=== PATIENT | female | born 1940 | race Caucasian/White ===

== ENCOUNTER 2024-01-04 09:55 | Outpatient (RCR) | payer MEDICARE, BC, SELFPAY ==
--- NOTE | 2024-01-04 10:50 | PT.OPEX ---
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 Victoria Subjective Subjective Patient is a 83 year old female who presents to physical therapy for her pre- op appointment prior to left JONATHON on 02/01/24. She is residing at the rehab center in [place] and will be having her post-op PT there as well. Significant past medical history includes metal implants in right wrist since September, arthritis, and osteoporosis. Pain Comments Today: 4/10 on a 0-10 pain scale with 10 = extreme pain At its worst: 8/10 At its best: 4/10 Current Work Status Retired Precautions Weight Bearing Status Full Weight Bearing Objective Other/Pertinent Objective Arrives in wheelchair KNEE ROM Grossly tested WNL B HIP ROM Seated exam in the wheelchair Grossly tested WNL, pain noted with IR and abduction LLE MMT: Hip flexion: R 4-/5 L 3+/5 Knee flexion: R 4-/5 L 3+/5 Knee extension: R 4-/5 L 3+/5 Reviewed/demonstrated on frequency to perform HEP post operatively including: long sitting quad set ankle pumps supine glute sets supine hamstring sets supine heel slide standing hip abd with UE support Extensive discussion and education on what to expect post operatively. Time was spent discussing home modifications, Assistive devices, pain control, fall prevention, hospital stay time line, and assist needed for activities post surgically. Pt questions were answered and demonstrated understanding. Assessment Assessment/Impression Pt is a 83 year old female who presents to PT prior to left JONATHON surgery on 02/01/24. Patient also has notable objective findings including limited ROM, tenderness to palpation, and decreased strength which are also likely contributing to the problem. Patient is a good candidate for skilled therapy to target deficits described above. Skilled PT intervention is necessary for use of therapeutic exercise manual therapy, neuromuscular re- education, gait training, and therapeutic activity. Functional impairments include difficulty with: standing, walking, exercising and ADLS. See appropriate sections of PT eval for complete list of goals and POC. D/C plan and criteria is for pt to achieve the goals as listed below or until max rehab potential is met. Pt was agreeable with plan of care and goals established. Primary Functional Limitations standing walking exercising ADLs Plan of Care Rehabilitation Potential Good Physical Therapy Goals JONATHON GOALS Within 10-12 weeks: 1) Pt will ambulate at least 20 minutes with asistive device, minimal antalgic gait for improved community mobility 2) Pt will be indep with HEP for halfway management of pain/symptoms 3) Pt will improve hip AROM at least 0-90* for improved sit to stand transfers 4) Patient will ascend/descend at least 10 steps using single rail and reciprocal pattern to improve ease of mobility at home/community 5)Pt will ambulate at least 20 minutes without assistive device, minimal antalgic gait for improved community mobility Coordination/Communication With Referral Source Treatment Plan/Direct Interventions Gait Training,Manual Therapy, Neuromuscular Re-ed, Therapeutic Activities, Therapeutic Exercises Patient Will Be Discharged From Therapy Independently Progressing Evaluation Billing Untimed Code Treatment Minutes 20 Complexity Low Certification Information Provider Signature Required Yes Provider Signature Shows Agreement With POC & Medical Necessity Physician NPI Number Write NPI# Here Physician Comment/Change : Physician Signature & Date Requested Please Sign/Date Here
== END 2024-04-01 08:39 | disposition home or self-care (01) ==
PROVIDERS: PCP Orthopaedic Surgery; Visit Provider Orthopaedic Surgery
DX: M16.12 Unilateral primary osteoarthritis, left hip (principal); Z96.642 Presence of left artificial hip joint; Z51.89 Encounter for other specified aftercare
CPT/HCPCS: 97161